=== PATIENT | male | born 1975 | race Two or more races ===

== ENCOUNTER 2021-10-02 08:33 | Emergency (ER) | payer OTHER ==
[~2021-10-02] VITALS: Ht 175.3 cm; Wt 85.5 kg
[2021-10-02] MEDS ORDERED: LISINOPRIL 10 MG TABLET PO ONE (09:15)
[2021-10-02 10:24] LABS: ANION GAP 4 mmol/L (8-16); CALCIUM, TOTAL 10.8 mg/dL (8.8-10.5); CARBON DIOXIDE 31 mmol/L (22-29); CHLORIDE 103 mmol/L (98-107); GLOMERULAR FILTR. RATE CALC > 60 mL/min (>60); GLUCOSE,RANDOM 133 mg/dL (70-110); POTASSIUM 4.3 mmol/L (3.5-5.1); SODIUM SERUM 138 mmol/L (136-145); UREA NITROGEN, BLOOD 11 mg/dL (7-18)
[2021-10-02] MEDS ORDERED: TACROLIMUS 0.5 MG CAPSULE PO ONE (10:30)
[2021-10-02] MEDS ORDERED: MYCOPHENOLATE MOFETIL 250 MG CAPSULE PO ONE (10:30)
[2021-10-02 10:31] LABS: ALANINE AMINOTRANSFERASE 91 U/L (12-78); ALBUMIN 3.8 g/dL (3.4-5.0); ALKALINE PHOSPHATASE 97 U/L (46-116); ASPARTATE AMINOTRANSFERASE 84 U/L (15-37); BILIRUBIN,TOTAL 1.6 mg/dL (0.1-1.0)
[2021-10-02 10:45] VITALS: BP 140/103
== END 2021-10-02 11:05 | disposition home or self-care (01) ==
LOC: EMS 08:33
DX: I10 Essential (primary) hypertension (principal); Z94.0 Kidney transplant status; Z88.0 Allergy status to penicillin
CPT/HCPCS: 36415; 80053; 83735; 99284; J7517

== ENCOUNTER 2021-11-08 14:20 | Emergency (ER) | payer OTHER ==
[~2021-11-08] VITALS: Ht 175.3 cm; Wt 82.7 kg
[2021-11-08 18:40] LABS: BASOPHILS % (AUTO) 0.8 % (0.0-2.0); EOSINOPHILS % (AUTO) 0.9 % (1.0-6.0); HEMATOCRIT 54.5 % (41-53); LYMPHOCYTES # (AUTO) 1.1 K/uL (1.0-4.8); LYMPHOCYTES % (AUTO) 20.8 % (22.0-44.0); MEAN CORPUSCULAR HEMOGLOBIN 34.2 pg (26.0-34.0); MEAN CORPUSCULAR HGB CONC 35.6 G/dL (31.0-37.0); MEAN CORPUSCULAR VOLUME 96 fL (80-100); MONOCYTES # (AUTO) 0.6 K/uL (0.1-1.0); MONOCYTES % (AUTO) 11.5 % (2.0-9.0); NEUTROPHILS # (AUTO) 3.5 K/uL (1.8-7.7); PLATELET COUNT (AUTO) 104 K/uL (150-450); RED BLOOD CELL COUNT(AUTO) 5.67 MIL/uL (4.50-5.90); RED CELL DISTRIBUTION WIDTH 13.6 % (11.5-14.5)
[2021-11-08 18:53] LABS: ANION GAP 9 mmol/L (8-16); CALCIUM, TOTAL 10.4 mg/dL (8.8-10.5); CARBON DIOXIDE 25 mmol/L (22-29); CHLORIDE 103 mmol/L (98-107); CREATININE 0.94 mg/dL (0.60-1.30); GLOMERULAR FILTR. RATE CALC > 60 mL/min (>60); GLUCOSE,RANDOM 96 mg/dL (70-110); POTASSIUM 4.1 mmol/L (3.5-5.1); SODIUM SERUM 137 mmol/L (136-145); UREA NITROGEN, BLOOD 12 mg/dL (7-18)
[2021-11-08 18:58] LABS: ALANINE AMINOTRANSFERASE 60 U/L (12-78); ALBUMIN 4.1 g/dL (3.4-5.0); ALKALINE PHOSPHATASE 82 U/L (46-116); ASPARTATE AMINOTRANSFERASE 30 U/L (15-37); BILIRUBIN,TOTAL 2.6 mg/dL (0.1-1.0); TOTAL PROTEIN, SERUM 8.1 g/dL (6.4-8.2)
[2021-11-08 19:08] LABS: COVID AG,FIA SOURCE NASOPHARYNGEAL
[2021-11-08 19:12] LABS: APPEARANCE,URINE CLEAR (CLEAR); BILIRUBIN,URINE NEGATIVE (NEGATIVE); GLUCOSE, URINE (UA) NEGATIVE (NEGATIVE); KETONES,URINE NEGATIVE (NEGATIVE); LEUKOCYTE ESTERASE ,URINE NEGATIVE (NEGATIVE); NITRATE,URINE NEGATIVE (NEGATIVE); OCCULT BLOOD,URINE NEGATIVE (NEGATIVE); PROTEIN,URINE SEE CONFIRM (NEGATIVE); UROBILINOGEN,URINE 0.2 mg/dL (<=1.0)
[2021-11-08 19:27] LABS: HEMOGLOBIN 19.4 g/dL (13.5-17.5)
[2021-11-08 19:28] LABS: PLATELET MORPHOLOGY COMMENT GIANT PLTS PRESENT
[2021-11-08 19:39] LABS: BACTERIA,URINE None Seen /HPF (None Seen); RBC,URINE 0-2 /HPF (0-2); SQUAMOUS EPITHELIAL CELL,UR None Seen /LPF (None Seen); SULFOSALICYLIC ACID,URINE 2+ (Negative); WBC,URINE 0-2 /HPF (0-5)
[2021-11-08 21:09] VITALS: BP 115/92
== END 2021-11-08 21:17 | disposition home or self-care (01) ==
LOC: EMS 14:37
DX: R31.9 Hematuria, unspecified (principal); R30.0 Dysuria; I10 Essential (primary) hypertension; Z94.0 Kidney transplant status; Z20.822 Contact with and (suspected) exposure to COVID-19
CPT/HCPCS: 76776; 80053; 81001; 81002; 85025; 99284